=== PATIENT | male | born 1985 | race Caucasian/White ===

== ENCOUNTER 2017-08-05 14:33 | Emergency (ER) | payer OTHER ==
[~2017-08-05] VITALS: Ht 177.8 cm; Wt 68.8 kg
[2017-08-05 14:35] VITALS: BP 142/94
== END 2017-08-05 16:35 | disposition home or self-care (01) ==
LOC: ED 16:29
DX: S93.402A Sprain of unspecified ligament of left ankle, initial encounter (principal); X50.1XXA Overexertion from prolonged static or awkward postures, initial encounter; Y93.89 Activity, other specified; Y92.89 Other specified places as the place of occurrence of the external cause; Y99.8 Other external cause status
CPT/HCPCS: 99284